=== PATIENT | male | born 1965 | race Caucasian/White ===

== ENCOUNTER 2022-03-27 13:44 | Emergency (ER) | payer OTHER ==
[2022-03-27 14:00] VITALS: BP 172/107
--- NOTE | 2022-03-27 15:17 | ED Physician Documentation ---
PD HPI SKIN - Stated complaint Stated Complaint: HEAD LAC - Chief complaint Chief Complaint: Laceration - History obtained from History obtained from: Patient - Additional information Additional information: The patient comes to the emergency department chief complaint of laceration on his scalp. He states he was bent over and got up and accidentally hit his head on the corner of a cabinet. He ended up with a wound on the top of his head which was bleeding quite a bit so he decided come in. He states he did not lose consciousness and did not feel dizzy afterward. No other injuries. He is up- to-date on tetanus. No anticoagulation Review of Systems Ten Systems: 10 systems reviewed and negative Constitutional: reports: Reviewed and negative Eyes: reports: Reviewed and negative Ears: reports: Reviewed and negative Nose: reports: Reviewed and negative Throat: reports: Reviewed and negative Cardiac: reports: Reviewed and negative Respiratory: reports: Reviewed and negative GI: reports: Reviewed and negative : reports: Reviewed and negative Skin: reports: Laceration (s) Musculoskeletal: reports: Reviewed and negative Neurologic: reports: Reviewed and negative Psychiatric: reports: Reviewed and negative Endocrine: reports: Reviewed and negative Immunocompromised: reports: Reviewed and negative PD PAST MEDICAL HISTORY - Present Medications Home Medications: Ambulatory Orders Medication Instructions Recorded Confirmed Atorvastatin [Lipitor] 20 mg PO DAILY 03/27/22 03/27/22 Metoprolol Succinate [Toprol Xl] 100 mg PO DAILY PM 03/27/22 03/27/22 - Allergies Allergies/Adverse Reactions: Allergies Allergy/AdvReac Type Severity Reaction Status Date / Time No Known Drug Allergies Allergy Verified 03/27/22 14:00 PD ED PE NORMAL - Vitals Vital signs reviewed: Yes - General General: Alert and oriented X 3, No acute distress, Well developed/nourished - HEENT HEENT: PERRL, EOMI, Moist mucous membranes, Other (5 mm laceration with linear abrasion and extension for total length wound of 1.5 cm. No foreign body. Minimal active bleeding.) - Neck Neck: Supple, no meningeal sign - Respiratory Respiratory: No respiratory distress - Derm Derm: Warm and dry - Extremities Extremities: No deformity - Neuro Neuro: Alert and oriented X 3 - Psych Psych: Normal mood, Normal affect Results - Vitals Vitals: Vital Signs - 24 hr 03/27/22 13:56 Temperature 36.5 C Heart Rate 67 Respiratory 16 Rate Blood Pressure 172/107 H O2 Saturation 96 Procedures - Laceration (location) Scalp Length in cm: 0.5 Wound type: Linear, Into subcut fat, Clean Neurovascular status: Sensory intact, Vascular intact Wound preparation: Hibiclens (Also cleansed with normal saline), Wound explored, To the base Skin layer closure: Garett (1) Other: Patient tolerated well, No complications, Neurovascular intact, Dressing applied, Tetanus UTD PD MEDICAL DECISION MAKING - ED course Complexity details: considered differential, d/w patient, d/w family ED course: The laceration was repaired with 1 staple. I have counseled the patient regarding wound care and the timeline for staple removal which for this size wound, I have recommended 7 days. We have discussed the usual indications for sooner return. Departure - Departure Disposition: 01 Home, Self Care Clinical Impression: Laceration Instructions: ED Laceration Scalp Stitch Or Stap Comments: Your laceration has been repaired with 1 staple today.You will need to have this removed in 7 days. Please go to urgent care walk-in clinic or your primary doctor's office for this. If you are unable to be seen 1 of these venues, please return to the emergency department. If you develop redness, progressive swelling, or discharge from the area sooner than that, please return to the emergency department.
== END 2022-03-27 15:49 | disposition home or self-care (01) ==
LOC: ED 13:44
DX: S01.01XA Laceration without foreign body of scalp, initial encounter (principal); W22.09XA Striking against other stationary object, initial encounter
CPT/HCPCS: 12001; 99281